=== PATIENT | male | born 1970 | race Hispanic/Latino ===

== ENCOUNTER 2019-09-14 14:10 | Emergency (ER) | payer SELFPAY ==
[~2019-09-14] VITALS: Ht 170.2 cm; Wt 73.0 kg
[2019-09-14] MEDS ORDERED: CIPROFLOXACN500 MG PO (17:53)
[2019-09-14] MEDS ORDERED: CLEOCIN300 MG PO (17:53)
[2019-09-14 18:10] VITALS: BP 147/78
== END 2019-09-14 18:11 | disposition home or self-care (01) | DRG 605 ==
LOC: ED 14:10
DX: S81.832A Puncture wound without foreign body, left lower leg, initial encounter (principal); W60.XXXA Contact with nonvenomous plant thorns and spines and sharp leaves, initial encounter; Y93.89 Activity, other specified

== ENCOUNTER 2019-09-19 11:46 | Emergency (ER) | payer SELFPAY ==
[~2019-09-19] VITALS: Ht 170.2 cm; Wt 70.0 kg
[~2019-09-19 11:46] MED LIST: CIPROFLOXACN500 MG PO; CLEOCIN300 MG PO
[2019-09-19] MEDS ORDERED: HYDROCO/APAP1 TA9 PO (12:25)
[2019-09-19 13:08] VITALS: BP 154/102
== END 2019-09-19 13:08 | disposition home or self-care (01) | DRG 603 ==
LOC: ED 11:46
DX: L03.116 Cellulitis of left lower limb (principal); S81.832A Puncture wound without foreign body, left lower leg, initial encounter; W60.XXXA Contact with nonvenomous plant thorns and spines and sharp leaves, initial encounter; T36.96XA Underdosing of unspecified systemic antibiotic, initial encounter; Z91.128 Patient's intentional underdosing of medication regimen for other reason